=== PATIENT | female | born 1950 | race Caucasian/White ===

== ENCOUNTER → 2019-12-08 09:40 | Outpatient (CLI) | payer OTHER ==
--- NOTE | 2019-12-10 10:52 | EC ---
PATIENT:VIVIAN CARDONA DATE OF SERVICE: 12/08/19 SEX: F MEDICAL RECORD: [id number] DATE OF : [birth year] LOCATION:[facility] AGE OF PATIENT: 69 ADMISSION DATE: 12/08/19 REFERRING PHYSICIAN: INTERPRETING PHYSICIAN: OLYA CARRENO MD ECHOCARDIOGRAM REPORT ECHO CHARGES 4 ECHO COMPLETE Date: 12/08/19 CLINICAL DIAGNOSIS: CAD/PALPITATIONS ECHOCARDIOGRAPHIC MEASUREMENTS (adult normal given) AC root (d.<3.7cm) 3.0 cm LV Septum d (<1.2 cm> 1.2 cm Valve Excursion 1.9 cm LV Septum (systole) 1.6 cm Left Atria (s.<4.0cm> 3.8 cm LVPW d(<1.2cm) 1.2 cm RV (d.<2.3cm) 3.2 cm LVPW (sytole) 1.5 cm LV diastole(<5.6CM) 4.7 cm MV E-F(>70mm/sec) cm LV systole 3.1 cm LVOT Diameter 1.8 cm MV exc.(>10mm) 1.9 cm Est.ejection fraction (50-75%) % DOPPLER: LVIT cm/sec A 76.0 cm/sec E 84.0 cm/sec LA cm/sec RVSP 24 mmHg LVOT 86 cm/sec AOP1/2T 6.16 m/s Asc. 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 Olguin TAPE# PACS Pericardial Effusion N DATE OF SERVICE: Adequate 2D, color flow imaging, spectral Doppler, and M-Mode. Borderline LVH. LV internal dimension is normal. Wall motion is normal. EF greater than or equal to 55%. Aortic valve is tricuspid. No evidence of stenosis by Doppler interrogation. Left atrium is normal at 3.8 cm. Mitral valve shows no prolapse. Trace MR. Right-sided chambers are grossly normal. Trace TR. ECHOCARDIOGRAM REPORT [id number] VIVIAN CARDONA TRANSINT:[id number] Voice Confirmation ID: [id number] DOCUMENT ID: [id number] OLYA CARRENO MD at 1052 CC: [id number] DICTATION DATE: 12/09/19 1449 VESSEL SLAGMAN: 12/10/19 0056 DEP CLI 12/08/19 [place] [id number] [place] [id number]
== END | disposition home or self-care (01) ==
LOC: D.HCCECHO 09:40
PROVIDERS: ATTEND Internal Medicine Interventional Cardiology
DX: I25.10 Atherosclerotic heart disease of native coronary artery without angina pectoris (principal)